=== PATIENT | female | born 1995 | race African-American/Black ===

== ENCOUNTER 2017-09-12 00:31 | Emergency (ER) | payer SELFPAY ==
--- NOTE | 2017-09-12 01:09 | ED ---
Psychiatric Complaint - HPI Summary HPI Summary: 22 female presents to ED brought in by [facility] police with complaints of feeling overwhelmed and increased stress over the past few weeks. Brought in by [employer] after her friend calling and concerned due to her complaints and seeing her arm. Patient states she feels like she has no-one to talk to. States she heard she may get fired from her job which has really been stressing her out along with school. 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 States she cut left forearm, superficially, two days ago to help let the pain out, since she did not feel she had anyone to talk to. Denies suicidal ideation and homicidal ideation. Does not want to hurt herself again. Has cut herself in the past however was never in intention to end her life. Patient attempted counsiling during her freshman year of college however did not like it but thinks she may try it again. No outpatient services, never diagnosed with psych problem and no medications. States she has a little cold and took robitussin today, otherwise feels healthy without complaints. No other PMHx. No alcohol or drug use. No hallucinations or hearing things. - History Of Current Complaint Chief Complaint: EDMentalHealth Time Seen by Provider: 09/12/17 00:41 Hx Obtained From: Patient Onset/Duration: Gradual Onset, Lasting Weeks, Still Present Timing: Constant Severity Initially: Mild Severity Currently: Moderate Character: Depressed, Anxious Aggravating Factor(s): Recent Stress Alleviating Factor(s): Nothing Associated Signs And Symptoms: Positive: Negative, Sleep Disturbance, Appetite Change Related History: Negative For: Prior Psychiatric Issues, Drug Abuse Counseling Has Suicidal: Denies: Thoughts, With A Plan Has Homicidal: Denies: Thoughts, With A Plan Recent Stressor(s): school and job, having no one to talk to - Allergies/Home Medications Allergies/Adverse Reactions: Allergies Allergy/AdvReac Type Severity Reaction Status Date / Time No Known Allergies Allergy Verified 09/12/17 00:36 PMH/Surg Hx/FS Hx/Imm Hx Endocrine/Hematology History: Denies: Hx Anticoagulant Therapy Cardiovascular History: Denies: Hx Hypertension Respiratory History: Denies: Hx Asthma - Surgical History Surgery Procedure, Year, and Place: n/a - Immunization History Immunizations Up to Date: Yes Infectious Disease History: No Infectious Disease History: Denies: Traveled Outside the [place] in Last 30 Days - Family History Known Family History: Positive: None - Social History Alcohol Use: None Substance Use Type: Reports: None Smoking Status (MU): Never Smoked Tobacco Review of Systems Constitutional: Negative Positive: Nasal Discharge - cold symptoms Cardiovascular: Negative Positive: Cough Neurological: Negative Positive: Depressed, Other - cut her left forearm All Other Systems Reviewed And Are Negative: Yes Physical Exam Triage Information Reviewed: Yes Vital Signs On Initial Exam: Initial Vitals Temp Pulse Resp BP Pulse Ox 97.8 F 108 16 134/74 100 09/12/17 00:34 09/12/17 00:34 09/12/17 00:34 09/12/17 00:34 09/12/17 00:34 tachycardia noted, patient tearful/anxious Vital Signs Reviewed: Yes Appearance: Positive: Well-Appearing - tearful and appears depressed, No Pain Distress, Well-Nourished Skin: Positive: Warm, Skin Color Reflects Adequate Perfusion, Dry, Other - superficial abrasions without bleeding, healing on left anterior forearm noted. no other signs of trauma or self harm Eyes: Positive: Normal, Conjunctiva Clear ENT: Positive: Pharynx normal, TMs normal Neck: Positive: Supple, Nontender Respiratory/Lung Sounds: Positive: Clear to Auscultation, Breath Sounds Present. Negative: Rales, Rhonchi, Wheezes Cardiovascular: Positive: Normal, RRR, Pulses are Symmetrical in both Upper and Lower Extremities. Negative: Murmur, Rub Abdomen Description: Positive: Nontender, Soft Bowel Sounds: Positive: Present Musculoskeletal: Positive: Normal, Strength/ROM Intact Neurological: Positive: Normal, Sensory/Motor Intact, Alert, Oriented to Person Place, Time, NV Bundle Intact Distally, Normal Gait Psychiatric: Positive: Depressed - Jackson Coma Scale Best Eye Response: 4 - Spontaneous Best Motor Response: 6 - Obeys Commands Best Verbal Response: 5 - Oriented Coma Scale Total: 15 Diagnostics - Vital Signs Vital Signs Temp Pulse Resp BP Pulse Ox 09/12/17 00:34 97.8 F 108 16 134/74 100 - Laboratory Result Diagrams: 09/12/17 01:00 09/12/17 01:00 Lab Statement: Any lab studies that have been ordered have been reviewed, and results considered in the medical decision making process. Course/Dx - Course Course Of Treatment: patient was medically cleared. labs and urinalysis obtained and unremarkable other than signs of UTI, will treat with bactrim and wait for urine culture. patient cooperative and comfortable during ED stay. will have mental health eval and appears to be depressed/increased stress and needs outpatient services set up. signed out to Dr Dawn at shift change pending MHE and disposition. no other concerns at this time. - Differential Dx/Clinical Impression Differential Diagnosis/HQI/PQRI: Positive: Anxiety, Depression, Other - self harm/cutting Provider Diagnosis: Mental health problem, Depression, Self-harming behavior, UTI (urinary tract infection) - Physician Notifications Discussed Care Of Patient With: Dr Dawn, E - signed out to Dr Dawn at shift change pending MHE Time Discussed With Above Provider: 02:30 Patient Is Medically Stable For: Psych Evaluation Discharge - Discharge Plan Condition: Stable Disposition: OTHER Discharge Disposition Comment: signed out to Dr Dawn at shift change pending MHE/disposition Prescriptions: Sulfamethox/Trimethoprim DS* [Bactrim DS 800/160 TAB*] 1 tab PO BID #5 tab Patient Education Materials: Urinary Tract Infection in Women (ED) Additional Instructions: take prescribed medication as directed for the next 5 days. increase fluid intake. good hygiene.
[2017-09-12 01:17] LABS: ABS Basophils 0.1 10^3/ul (0-0.2); ABS Eosinophils 0.3 10^3/ul (0-0.6); ABS Lymphocytes 1.3 10^3/ul (1.0-4.8); ABS Monocytes 0.6 10^3/ul (0-0.8); ABS Neutrophils 6.7 10^3/ul (1.5-7.7); ABS Nucleated RBC 0 10^3/ul; Eosinophil % 3.4 % (0-6); Hematocrit 33 % (35-47); Lymphocyte % 14.3 % (25-47); Mean Corpuscular HGB Conc 33 g/dl (31-36); Mean Corpuscular Hemoglobin 28 pg (27-31); Mean Corpuscular Volume 84 fL (80-97); Mean Platelet Volume 9 um3 (7.4-10.4); Nucleated Red Blood Cells % 0; Platelet Count 287 10^3/ul (150-450); Red Blood Count 3.98 10^6/ul (4.0-5.4); Red Cell Distribution Width 17 % (10.5-15); White Blood Count 8.9 10^3/ul (3.5-10.8)
[2017-09-12 01:26] LABS: EGFR Non-African American 95.6 (>60)
[2017-09-12 01:34] LABS: Urine Appearance Cloudy; Urine Blood Negative (Negative); Urine Color Yellow; Urine Ketones 1+ (Negative); Urine Protein 2+(100 mg/dL) (Negative); Urine Specific Gravity 1.032 (1.010-1.030); Urine Urobilinogen Negative (Negative)
[2017-09-12] MEDS ORDERED: Sulfamethox/Trimethoprim DS 800/160* TAB PO ONE (01:52)
[2017-09-12] MEDS ORDERED: Ibuprofen TAB* 600 MG PO ONE (02:45)
[2017-09-12 04:24] VITALS: BP 0/0
--- NOTE | 2017-09-12 19:31 | ED ---
Roxana Sidhu Jason, scribed for Negin Dawn MD on 09/12/17 at 0620 . Progress - Progress Note Progress Note: This patient was signed out from Dr. Lin (PA), pending disposition, awaiting Mental health evaluation. MHE reveals that she is future oriented. She denies SI, and her cuts were superficial. The patients condition is stable and will be discharged home with a dx of depression. - Consult/PCP Time Called: 02:00 Course/Dx - Course Course Of Treatment: patient was medically cleared. labs and urinalysis obtained and unremarkable other than signs of UTI, will treat with bactrim and wait for urine culture. patient cooperative and comfortable during ED stay. will have mental health eval and appears to be depressed/increased stress and needs outpatient services set up. signed out to Dr Dawn at shift change pending MHE and disposition. no other concerns at this time. - Diagnoses Provider Diagnoses: Mental health problem, Depression, Self-harming behavior, UTI (urinary tract infection) - Provider Notifications Time Discussed With Above Provider: 02:30 The documentation as recorded by the Roxana pantoja Jason accurately reflects the service I personally performed and the decisions made by Nereyda basilio Abdul, MD.
== END 2017-09-12 03:33 ==
LOC: ED 00:31
DX: F32.9 Major depressive disorder, single episode, unspecified (principal); Z91.5 Personal history of self-harm; N39.0 Urinary tract infection, site not specified
CPT/HCPCS: 36415; 80053; 80307; 80320; 80329; 81003; 81015; 84443; 85025; 87086; 99284; A9270-GY; G0480